=== PATIENT | female | born 1945 | race Caucasian/White ===

== ENCOUNTER 2018-06-10 20:17 | Emergency (ER) | payer OTHER ==
[~2018-06-10] VITALS: Ht 160 cm; Wt 97.5 kg
[~2018-06-10 20:17] MED LIST: ALLEGRA180 MG; ASPIRIN81 M2 PO; ATENOLOL 50MG T50 MG PO; ATENOLOL-CHLOR1 EACH PO; B12INJ PO; CITRACAL + D C1 EACH PO; COZAAR 25 MG TA25 M1 PO; COZAAR 50 MG TA50 M2 PO; FLAXSEED-FISH-400 MG PO; K-DUR 20 MEQ T20 MEQ PO; L-LYSINE 5500 MG/1 T PO; MAGNESIUM250 M1 PO; POTASSIUM99 M1; PRILOSEC 20 MG20 MG PO; VITAMIN D-32000 UNIT PO; VITCB500GO PO
[2018-06-10] MEDS ORDERED: HYDROCHLOROTH12.5 M1 (20:33)
[2018-06-10 21:02] LABS: ABSOLUTE BASOPHILS 0.1 thou/uL (0.0-0.2); ABSOLUTE EOSINOPHILS 0.4 thou/uL (0.0-0.7); ABSOLUTE LYMPHOCYTES 2.6 thou/uL (0.8-5.3); ABSOLUTE MONOCYTES 0.9 thou/uL (0.0-1.2); ABSOLUTE NEUTROPHILS 3.7 thou/uL (1.6-8.1); BASOPHILS 0.9 %; EOSINOPHILS 5.7 %; HEMATOCRIT 31.6 % (37.0-47.0); HEMOGLOBIN 10.7 gm/dL (12.0-15.0); MCH 29.1 pg (26.0-34.0); MCHC 33.8 g/dL (28.0-37.0); MCV 86.1 fL (80.0-100.0); MONOCYTES 11.9 %; MPV 7.1 fl. (7.2-11.1); NUCLEATED RBCS 0 /100WBC; PLATELET COUNT* 287 thou/uL (150-400); POLYS 47.5 %; RBC 3.66 mil/uL (4.20-5.00); RDW-CV 12.9 % (10.5-14.5); WBC 7.8 thou/uL (4.0-11.0)
[2018-06-10 21:27] LABS: CALCIUM 9.5 mg/dL (8.5-10.1); POTASSIUM 3.5 mmol/L (3.5-5.1)
[2018-06-10 21:32] LABS: ALBUMIN 3.7 g/dL (3.4-5.0); TOTAL BILIRUBIN 0.4 mg/dL (<0.1-1.0); TOTAL PROTEIN 7.4 g/dL (6.4-8.2)
[2018-06-10 21:44] LABS: URINE BILIRUBIN NEGATIVE (Negative); URINE BLOOD NEGATIVE (Negative); URINE CLARITY CLEAR; URINE COLOR YELLOW; URINE GLUCOSE-RANDOM NEGATIVE (Negative); URINE KETONES NEGATIVE (Negative); URINE LEUKOCYTES-REFLEX TRACE (Negative); URINE NITRITE-REFLEX NEGATIVE (Negative); URINE PROTEIN NEGATIVE (Negative); URINE UROBILINOGEN 0.2 E.U./dl (0.2-1.0)
[2018-06-10 21:51] LABS: CASTS None Seen /LPF (None Seen); MUCUS 0-3 Light strn/LPF (None Seen); SQUAMOUS 0-3 Few /LPF (0-3); URINE RBC 3-10 Few /HPF (0-2); URINE WBC-REFLEX 6-15 Few /HPF (0-5)
[2018-06-10 21:52] LABS: CRYSTALS None Seen /LPF (None Seen)
[2018-06-10] MEDS ORDERED: KEFLEX500 M1 PO (23:33)
[2018-06-10 23:35] VITALS: BP 146/58
--- NOTE | 2018-06-11 15:35 | EKG ---
[place] [address] ELECTROCARDIOGRAM REPORT Name: TATYANA BACA [id number] Admission: 06/10/18 Attend Phys: Discharge: 06/10/18 Date of : 41 Report #: [id number] THIS REPORT FOR: //name// [facility] ED Test Date: 2018-06-10 Test Time: 20:59:44 Pat Name: TATYANA BACA Department: Room: Gender: F Careers Adviser: Briana NIEVES : 1945 Requested By: Amaya Lozano Order Number: [id number] MD: Deandre Fenton Measurements Intervals [place] Rate: 66 P: 11 W[place]: 174 QRS: -19 QRSD: 119 T: 55 QT: 407 QTc: 427 Interpretive Statements Sinus rhythm Probable left ventricular hypertrophy with IVCD Baseline wander in lead(s) V1 Compared to ECG 11/26/2013 08:41:03 Atrial premature complex(es) no longer present ST (T wave) deviation no longer present Electronically Signed On 06-11-2018 15:35:28 LIGHTING FIXTURES DECORATOR by Deandre Fenton [email or web address] <ELECTRONICALLY SIGNED> By: Deandre Fenton MD, FAC 06/11/18 1535 58 58 Deandre Fenton MD, [facility] /EPI
== END 2018-06-10 23:40 | disposition home or self-care (01) ==
LOC: M.ERS 20:17
PROVIDERS: Emergency Medicine
DX: I10 Essential (primary) hypertension (principal); N39.0 Urinary tract infection, site not specified; Z88.0 Allergy status to penicillin; Z90.49 Acquired absence of other specified parts of digestive tract

== ENCOUNTER 2018-07-28 16:23 | Inpatient (IN) | payer OTHER ==
[~2018-07-28] VITALS: Ht 162.6 cm; Wt 95.3 kg
[~2018-07-28 16:23] MED LIST changes: -CITRACAL + D C1 EACH PO; +CITRACAL + D M1 EACH PO; +COZAAR 50 MG TA50 M1 PO; -COZAAR 50 MG TA50 M2 PO; +HYDROCHLOROTH12.5 M1; +KEFLEX500 M1 PO
[2018-07-28 16:39] VITALS: BP 147/59
[2018-07-28] MEDS ORDERED: BIAXIN 250MG T250 MG PO (16:43)
[2018-07-28] MEDS ORDERED: PROMS25 WY PO (16:44)
[2018-07-28 18:07] LABS: ABSOLUTE BASOPHILS 0.1 thou/uL (0.0-0.2); ABSOLUTE EOSINOPHILS 0.1 thou/uL (0.0-0.7); ABSOLUTE LYMPHOCYTES 1.1 thou/uL (0.8-5.3); ABSOLUTE MONOCYTES 1.1 thou/uL (0.0-1.2); ABSOLUTE NEUTROPHILS 6.8 thou/uL (1.6-8.1); BASOPHILS 0.6 %; EOSINOPHILS 0.7 %; HEMATOCRIT 31.3 % (37.0-47.0); HEMOGLOBIN 10.8 gm/dL (12.0-15.0); MCH 29.5 pg (26.0-34.0); MCHC 34.6 g/dL (28.0-37.0); MCV 85.1 fL (80.0-100.0); MPV 7.2 fl. (7.2-11.1); NUCLEATED RBCS 0 /100WBC; PLATELET COUNT* 209 thou/uL (150-400); POLYS 74.7 %; RBC 3.68 mil/uL (4.20-5.00); WBC 9.1 thou/uL (4.0-11.0)
[2018-07-28 18:30] LABS: ANION GAP 6 mmol/L (7-16); BUN 15 mg/dL (7-18); CALCIUM 8.7 mg/dL (8.5-10.1); CHLORIDE 93 mmol/L (98-107); CO2 30 mmol/L (21-32); CREATININE 1.2 mg/dL (0.6-1.3); GLUCOSE 131 mg/dL (70-99); POTASSIUM 3.1 mmol/L (3.5-5.1); SODIUM 129 mmol/L (136-145); TROPONIN-I LEVEL <0.06 ng/mL (<0.06)
[2018-07-28 18:40] LABS: ALBUMIN 3.5 g/dL (3.4-5.0); ALKALINE PHOSPHATASE 47 U/L (46-116); NT-PRO BRAIN NAT PEPTIDE 1179 pg/mL (<300); SGOT 23 U/L (15-37); SGPT 11 U/L (30-65); TOTAL BILIRUBIN 0.9 mg/dL (<0.1-1.0); TOTAL PROTEIN 7.1 g/dL (6.4-8.2)
[2018-07-28 19:50] LABS: INFLUENZA A ANTIGEN None Detected (None Detect); INFLUENZA B ANTIGEN None Detected (None Detect)
[2018-07-28 20:04] VITALS: BP 129/46
[2018-07-28 20:20] VITALS: BP 147/63
[2018-07-29] VITALS: BP 186/78
--- NOTE | 2018-07-29 03:33 | NUR ---
PT TRANSFERED FROM ED AT 2020. RECIEVED REPORT AND ASSUMED CARE AT 2020. TALENT DEVELOPMENT DIRECTOR IN PLACE. VITAL SIGNS STABLE. PT IS UP ADLIB. HAS SOME INCONTINENCE WITH COUGHING AND GAVE HER SOME PULL UPS TO HELP WITH INCONTINENCE. ASSESSMENT COMPLETED AND DISCUSSED PLAN OF CARE, PT UNDERSTANDS. BED LOCKED AND CALL LIGHT WITHIN REACH. FALL PRECAUTIONS IN PLACE. HOURLY ROUNDING DONE AND ALL NEEDS MET. NURSING WILL CONTINUE TO MONITOR.
[2018-07-29 04:00] VITALS: BP 145/53
[2018-07-29 07:39] LABS: URINE BILIRUBIN NEGATIVE (Negative); URINE BLOOD NEGATIVE (Negative); URINE CLARITY CLEAR; URINE COLOR YELLOW; URINE GLUCOSE-RANDOM NEGATIVE (Negative); URINE KETONES NEGATIVE (Negative); URINE LEUKOCYTES-REFLEX NEGATIVE (Negative); URINE NITRITE-REFLEX NEGATIVE (Negative); URINE PROTEIN NEGATIVE (Negative); URINE SPECIFIC GRAVITY <= 1.005 (1.005-1.030); URINE UROBILINOGEN 0.2 E.U./dl (0.2-1.0)
[2018-07-29 11:30] VITALS: BP 118/54
--- NOTE | 2018-07-29 14:09 | EKG ---
[place] [address] ELECTROCARDIOGRAM REPORT Name: TATYANA BACA Room: [address] ADM IN M.R.#: [id number] Admission: 07/28/18 Attend Phys: Chai Mitchell MD Discharge: Date of : 41 Report #: [id number] THIS REPORT FOR: //name// [facility] ED Test Date: 2018-07-28 Test Time: 18:45:17 Pat Name: TATYANA BACA Department: Room: [facility] Gender: F Beautician Apprentice: RAMONITA : 1945 Requested By: Maddie Haile Order Number: [id number] MD: Juan Serna Measurements Intervals [place] Rate: 72 P: 14 [place]: 162 QRS: -29 QRSD: 121 T: 49 QT: 436 QTc: 478 Interpretive Statements Sinus rhythm Ventricular bigeminy Left ventricular hypertrophy Compared to ECG 06/10/2018 20:59:44 Ventricular premature complex(es) now present Electronically Signed On 07-29-2018 14:09:44 ELECTRONIC LAB TECHNICIAN by Juan Serna [email or web address] <ELECTRONICALLY SIGNED> By: Juan Serna MD, [facility] 07/29/18 1409 1845 1845 Juan Serna MD, [facility] /EPI
[2018-07-29 16:41] VITALS: BP 140/67
--- NOTE | 2018-07-29 18:31 | NUR ---
PT REMAINED A&O X4. LABS MONITERED. POTTASIUM CAME UP TO 3.4. VITALS STABLE. BED ALARMS ON. CALL LIGHT WITHIN REACH. FALL RISK PRECAUTION IN PLACE. PATIENT EDUCATED ON MEDS AND CARE PLAN. ANTIBIOTICS GIVEN. PT TOLERATED. NO NAUSEA AND VOMITING. HOURLY ROUNDING COMPLETED. WILL CONTINUE TO MONITOR.
[2018-07-29 20:10] VITALS: BP 135/69
[2018-07-30] VITALS: BP 147/63
--- NOTE | 2018-07-30 02:56 | NUR ---
RECIEVED REPOT AND ASSUMED CARE AT 1900. ASSIGNMENT EDITOR IN PLACE. SLIGHT TEMP, OTHER THAN THAT VITAL SIGNS STABLE. PT HAS PAIN AT TIMES FROM COUGHING AND PRN COUGH MEDS GIVEN ORDERED. PT IS UP ADLIB. ASSESSMENT COMPLETED AND DISCUSSED PLAN OF CARE, PT UNDERSTANDS. BED LOCKED AND CALL LIGHT WITHIN REACH. FALL PRECAUTIONS IN PLACE. HOURLY ROUNDING DONE AND ALL NEEDDS MET. NURSING WILL CONTINUE TO MONITOR.
[2018-07-30 04:00] VITALS: BP 128/63
--- NOTE | 2018-07-30 07:01 | NUR ---
PT HAD COUGH THAT WAS KEEPING HER FROM SLEEPING SO PRN COUGH MEDS GIVEN ORDERED.
[2018-07-30 08:00] VITALS: BP 153/53
[2018-07-30 11:54] VITALS: BP 152/70
[2018-07-30 14:00] VITALS: BP 182/77
--- NOTE | 2018-07-30 15:37 | NUR ---
Pt is A&O. Resides at home with her sister. Independent. No DME. No hx of HH or SNF. [place] at [place]. Following.
--- NOTE | 2018-07-30 18:57 | NUR ---
ASSUMED PT CARE AT 0730, FULL ASSESMENT DONE CHARTED. PT A/O X4, C/O NON PRODUCTIVE COUGH, UP AD RUBY, VSS, SR ON THE MONIOTOR, PT BECOMES TACHY WHEN AMBULATING. SHE WAS ENCOURAGED TO TAKE SHORT WALKS TODAY. PT HOPEFUL TO GO HOME SOON. STILL WAITING ON SPUTUME SAMPLE, PT UNABLE TO PROVIDE USABLE SPECIMINE. USES CALL LIGHT APPROPRIATLY. WILL CONTINUE WITH PLAN OF CARE.
[2018-07-30 19:15] VITALS: BP 168/71
[2018-07-30] MEDS ORDERED: KAPSPARGO SPRIN25 MG PO (20:58)
[2018-07-31] VITALS: BP 130/84
[2018-07-31 04:00] VITALS: BP 155/59
[2018-07-31 04:55] LABS: HEMATOCRIT 28.8 % (37.0-47.0); MCH 29.1 pg (26.0-34.0); MCHC 34.6 g/dL (28.0-37.0); MCV 83.9 fL (80.0-100.0); MPV 7.4 fl. (7.2-11.1); NUCLEATED RBCS 0 /100WBC; PLATELET COUNT* 224 thou/uL (150-400); RBC 3.43 mil/uL (4.20-5.00); RDW-CV 12.6 % (10.5-14.5); WBC 6.4 thou/uL (4.0-11.0)
[2018-07-31 05:09] LABS: CALCIUM 8.9 mg/dL (8.5-10.1); CREATININE 0.9 mg/dL (0.6-1.3); MAGNESIUM 1.9 mg/dL (1.8-2.4); POTASSIUM 3.9 mmol/L (3.5-5.1)
--- NOTE | 2018-07-31 06:37 | NUR ---
PT SLEPT T/O THIS SHIFT. PT DOES CONTINUE TO HAVE CONGESTED COUGH. PT HAS REMAINED AFEBRILE AND SR ON MONITOR. B/P STABLE. CLWR.
[2018-07-31 07:04] LABS: ABSOLUTE EOSINOPHILS 0.3 thou/uL (0.0-0.7); ABSOLUTE LYMPHOCYTES 2.4 thou/uL (0.8-5.3); ABSOLUTE MONOCYTES 0.3 thou/uL (0.0-1.2); ABSOLUTE NEUTROPHILS 3.5 thou/uL (1.6-8.1); ANISOCYTOSIS 1+; PLATELET ESTIMATE ADEQUATE; POIKILOCYTOSIS 1+
[2018-07-31 08:05] VITALS: BP 151/70
[2018-07-31 11:30] VITALS: BP 162/68
[2018-07-31] MEDS ORDERED: MUCINEX600 MG PO (12:03)
[2018-07-31] MEDS ORDERED: AZITHROMYCIN 2250 MG PO (12:03)
[2018-07-31] MEDS ORDERED: CEFDINIR300 MG PO (12:03)
[2018-07-31] MEDS ORDERED: PREDNISONE 20 M20 MG PO (12:03)
[2018-07-31] MEDS ORDERED: IRON325 PO (12:09)
[2018-07-31 12:33] VITALS: BP 162/68
--- NOTE | 2018-07-31 12:48 | 2DMMODE ---
[place] [address] 2 D/M-MODE ECHOCARDIOGRAM Name: TATYANA BACA Room: [address] IN .R.#: [id number] Admission: 07/28/18 Attend Phys: Chai Mitchell, Discharge: Date of : 41 Date of Service: 07/31/18 1248 Report #: [id number] THIS REPORT FOR: //name// APPROVED REPORT Study performed: 07/31/2018 09:36:26 EXAM: Comprehensive 2D, Doppler, and color-flow Echocardiogram Patient Location: In-Patient Room #: [facility] Status: routine BSA: 1.99 HR: 82 bpm BP: 155/59 mmHg Rhythm: NSR Other Information Study Quality: Good Indications Dyspnea 2D Dimensions IVSd: 12.41 (7-11mm) LVOT Diam: 21.14 (18-24mm) LVDd: 47.97 mm PWd: 10.29 (7-11mm) Ascending Ao: 30.53 (22-36mm) LVDs: 30.30 (25-40mm) Aortic Root: 31.61 mm Volumes Left Atrial Volume (Systole) LA ESV Index: 34.20 mL/m2 Aortic Valve AoV Peak Oscar.: 1.73 m/s AO Peak Gr.: 11.96 mmHg LVOT Max P.43 mmHg AO Mean Gr.: 6.40 mmHg LVOT Mean P.46 mmHg LVOT Max V: 1.17 m/s AO V2 VTI: 33.06 cm LVOT Mean V: 0.71 m/s RADHAMES (VTI): 2.65 cm2 LVOT V1 VTI: 25.00 cm Mitral Valve E/A Ratio: 1.24 MV Decel. Time: 190.62 ms MV E Max Oscar.: 0.99 m/[place] [address] 2 D/M-MODE ECHOCARDIOGRAM Name: TATYANA BACA Room: [address] IN M.R.#: [id number] Admission: 07/28/18 Attend Phys: Chai Mitchell, Discharge: Date of : 41 Date of Service: 07/31/18 1248 Report #: [id number] MV PHT: 55.28 ms MVA (PHT): 3.98 cm2 TDI E/Lateral E': 7.62 E/Medial E': 9.90 Medial E' Oscar.: 0.10 m/s Lateral E' Oscar.: 0.13 m/s Pulmonary Valve PV Peak Oscar.: 0.94 m/s PV Peak Gr.: 3.52 mmHg Tricuspid Valve RAP Estimate: 5.00 mmHg TR Peak Gr.: 32.81 mmHg RVSP: 37.00 mmHg PA Pressure: 37.00 mmHg Left Ventricle The left ventricle is normal size. There is normal LV segmental wall motion. There is normal left ventricular wall thickness. Left ventricular systolic function is normal. The left ventricular ejection fraction is within the normal range. LVEF is 60-65%. The left ventricular diastolic function is normal. Right Ventricle The right ventricle is normal size. The right ventricular systolic function is normal. Atria The left atrium size is normal. The right atrium size is normal. Aortic Valve The aortic valve is normal in structure. No aortic regurgitation is present. There is no aortic valvular stenosis. Mitral Valve There is mitral annular calcification. Mild mitral regurgitation. No evidence of mitral valve stenosis. Tricuspid Valve The tricuspid valve is normal in structure. Mild tricuspid regurgitation. Mild pulmonary hypertension. Pulmonic Valve The pulmonary valve is normal in structure. Mild [place] [address] 2 D/M-MODE ECHOCARDIOGRAM Name: TATYANA BACA Room: [address] IN [facility]#: [id number] Admission: 07/28/18 Attend Phys: Chai Mitchell, Discharge: Date of : 41 Date of Service: 07/31/18 1248 Report #: [id number] Great Vessels The aortic root is normal in size. IVC is normal in size and collapses >50% with inspiration. Pericardium There is no pericardial effusion. <Conclusion> The left ventricle is normal size. There is normal left ventricular wall thickness. Left ventricular systolic function is normal. The left ventricular ejection fraction is within the normal range. LVEF is 60-65%. The left ventricular diastolic function is normal. The right ventricle is normal size. The left atrium size is normal. The aortic valve is normal in structure. There is mitral annular calcification. Mild mitral regurgitation. No evidence of mitral valve stenosis. The tricuspid valve is normal in structure. Mild tricuspid regurgitation. Mild pulmonary hypertension. IVC is normal in size and collapses >50% with inspiration. There is no pericardial effusion. There is normal LV segmental wall motion. <ELECTRONICALLY SIGNED> By: Deandre Fenton MD, FACC 07/31/18 1248 1248 1248 Deandre Fenton MD, FACC /INF
--- NOTE | 2018-07-31 17:07 | NUR ---
PT VSS THIS SHIFT ON RA AND RUNNING SR ON THE MONITOR. PT IV REMOVED INTACT THIS SHIFT. PT UNABLE TO PRODUCE SPUTUM SAMPLE THIS SHIFT. . PT IV REMOVED DUE TO INFILTRATION AND NEW IV WAS CAUSING SIGNIFICANT DISCOMFORT THIS SHIFT. DR DORANTES NOTIFIED AND PT SWITCHED TO PO MEDICATIONS. RX CALLED INTO [place] [address] [facility] TO [address] [address]. PT STILL EXPERIENCING WHEEZY SPELLS AND DR DORANTES ASKED PER PT REQUEST FOR INHALER AND COUGH SYRUP, DR DORANTES STATED TO FOLLOW UP WITH PCP. PT HAS NO SKIN ISSUES NOTED THIS SHIFT. PT EDUCATED TO TAKE MUCINEX OVER THE COUNTER AND WILL DC THIS EVENING. WILL CONTINUE TO ASSESS AND MONITOR
== END 2018-07-31 18:36 | disposition home health service (06) | DRG 640 ==
LOC: M.ERS 16:23 → M.TBA-ER 19:06 → M.2W 19:06
PROVIDERS: Family Medicine; Nurse Practitioner Family
DX: E87.1 Hypo-osmolality and hyponatremia (principal); J15.9 Unspecified bacterial pneumonia; J20.9 Acute bronchitis, unspecified; I95.1 Orthostatic hypotension; E87.6 Hypokalemia; D50.9 Iron deficiency anemia, unspecified; D63.8 Anemia in other chronic diseases classified elsewhere; I10 Essential (primary) hypertension; Z79.899 Other long term (current) drug therapy; Z88.0 Allergy status to penicillin

== ENCOUNTER 2020-09-19 10:09 | Emergency (ER) | payer OTHER ==
[~2020-09-19] VITALS: Ht 160 cm; Wt 96.6 kg
[~2020-09-19 10:09] MED LIST changes: +AZITHROMYCIN 2250 MG PO; +BIAXIN 250MG T250 MG PO; +CEFDINIR300 MG PO; +IRON325 PO; +KAPSPARGO SPRIN25 MG PO; +MUCINEX600 MG PO; +PREDNISONE 20 M20 MG PO; +PROMS25 WY PO
[2020-09-19] MEDS ORDERED: CARVEDILOL12.5 MG PO (10:45)
[2020-09-19] MEDS ORDERED: AVAPRO300 MG PO (10:45)
[2020-09-19] MEDS ORDERED: CHLORTHALIDONE25 MG PO (10:46)
[2020-09-19 10:50] LABS: ABSOLUTE BASOPHILS 0.1 thou/uL (0.0-0.2); ABSOLUTE EOSINOPHILS 0.5 thou/uL (0.0-0.7); ABSOLUTE LYMPHOCYTES 2.1 thou/uL (0.8-5.3); ABSOLUTE MONOCYTES 0.9 thou/uL (0.0-1.2); ABSOLUTE NEUTROPHILS 5.8 thou/uL (1.6-8.1); BASOPHILS 1.1 %; EOSINOPHILS 4.9 %; HEMATOCRIT 33.5 % (37.0-47.0); HEMOGLOBIN 11.3 gm/dL (12.0-15.0); LYMPHOCYTES 22.9 %; MCHC 33.8 g/dL (28.0-37.0); MCV 85.8 fL (80.0-100.0); MONOCYTES 9.2 %; MPV 6.7 fl. (7.2-11.1); NUCLEATED RBCS 0 /100WBC; PLATELET COUNT* 270 thou/uL (150-400); POLYS 61.9 %; RBC 3.91 mil/uL (4.20-5.00); RDW-CV 13.1 % (10.5-14.5); WBC 9.4 thou/uL (4.0-11.0)
[2020-09-19 11:00] LABS: CALCIUM 9.9 mg/dL (8.5-10.1); CREATININE 1.1 mg/dL (0.6-1.3); POTASSIUM 3.6 mmol/L (3.5-5.1)
[2020-09-19 11:02] LABS: APTT 30.5 Seconds (25.0-31.3); INR 1.1; PROTIME 11.5 Seconds (9.20-11.50)
[2020-09-19 11:11] LABS: TOTAL BILIRUBIN 0.9 mg/dL (<0.1-1.0); TOTAL PROTEIN 8.2 g/dL (6.4-8.2)
[2020-09-19 13:25] VITALS: BP 178/66
--- NOTE | 2020-09-21 10:53 | EKG ---
[place] [address] ELECTROCARDIOGRAM REPORT Name: TATYANA BACA [id number] Admission: 09/19/20 Attend Phys: Discharge: 09/19/20 Date of : 41 Date of Service: 09/19/20 1018 Report #: [id number] THIS REPORT FOR: //name// [facility] ED Test Date: 2020-09-19 Test Time: 10:18:31 Pat Name: TATYANA BACA Department: Room: Gender: F Breakfast Bar Attendant: SHILPI : 1945 Requested By: Franki Mays Order Number: [id number] MD: Victor Hugo Lovelace Measurements Intervals [place] Rate: 64 P: 140 NM: 175 QRS: 205 QRSD: 126 T: 84 QT: 411 QTc: 424 Interpretive Statements Right and left arm electrode reversal, interpretation assumes no reversal Sinus or ectopic atrial rhythm Nonspecific intraventricular conduction delay Compared to ECG 07/28/2018 18:45:17 T-wave abnormality now present Possible ischemia now present Ventricular premature complex(es) no longer present Left ventricular hypertrophy no longer present Electronically Signed On 09-21-2020 10:53:36 CDT by Victor Hugo Lovelace [email or web address] <ELECTRONICALLY SIGNED> By: Victor Hugo Lovelace MD, FACC 09/21/20 1053 1018 1018 Victor Hugo Lovelace MD, [facility] /EPI
--- NOTE | 2020-09-21 10:55 | EKG ---
[place] [address] ELECTROCARDIOGRAM REPORT Name: TATYANA BACA [id number] Admission: 09/19/20 Attend Phys: Discharge: 09/19/20 Date of : 41 Date of Service: 09/19/20 1020 Report #: [id number] THIS REPORT FOR: //name// [facility] ED Test Date: 2020-09-19 Test Time: 10:20:03 Pat Name: TATYANA BACA Department: Room: Gender: F Silk Trimmer: SHILPI : 1945 Requested By: Franki Mays Order Number: [id number] MD: Victor Hugo Lovelace Measurements Intervals [place] Rate: 68 P: 37 [place]: 177 QRS: -24 QRSD: 126 T: 94 QT: 416 QTc: 443 Interpretive Statements Sinus rhythm LVH with IVCD and secondary repol abnrm Compared to ECG 09/19/2020 10:18:31 Left ventricular hypertrophy now present right axis no longer noted Electronically Signed On 09-21-2020 10:54:51 CDT by Victor Hugo Lovelace [email or web address] <ELECTRONICALLY SIGNED> By: Victor Hugo Lovelace MD, FAC 09/21/20 1054 1020 1020 Victor Hugo Lovelace MD, [facility] /EPI
--- NOTE | 2020-09-21 11:24 | EKG ---
[place] [address] ELECTROCARDIOGRAM REPORT Name: TATYANA BACA [id number] Admission: 09/19/20 Attend Phys: Discharge: 09/19/20 Date of : 41 Date of Service: 09/19/20 1245 Report #: [id number] THIS REPORT FOR: //name// [facility] ED Test Date: 2020-09-19 Test Time: 12:45:46 Pat Name: TATYANA BACA Department: Room: Gender: F Pile Header: PATRICIA : 1945 Requested By: Franki Mays Order Number: [id number] Adama MD: Victor Hugo Lovelace Measurements Intervals [place] Rate: 56 P: 11 [place]: 163 QRS: -24 QRSD: 126 T: 47 QT: 448 QTc: 433 Interpretive Statements Sinus rhythm Left ventricular hypertrophy Compared to ECG 09/19/2020 10:20:03 no change Electronically Signed On 09-21-2020 11:24:26 CDT by Victor Hugo Lovelace [email or web address] <ELECTRONICALLY SIGNED> By: Victor Hugo Lovelace MD, [facility] 09/21/20 1124 1245 1245 Victor Hugo Lovelace MD, [facility] /EPI
== END 2020-09-19 13:26 | disposition home or self-care (01) ==
LOC: M.ERS 10:09
PROVIDERS: Emergency Medicine Emergency Medical Services
DX: R07.89 Other chest pain (principal); I10 Essential (primary) hypertension; Z98.51 Tubal ligation status; Z88.0 Allergy status to penicillin